=== PATIENT | male | born 1960 | race Caucasian/White ===

== ENCOUNTER 2018-12-11 14:49 | Emergency (ER) | payer OTHER ==
[~2018-12-11] VITALS: Ht 175.3 cm; Wt 97.7 kg
[~2018-12-11 14:49] MED LIST: CEFTIN500 MG PO; FLOMAX 0.40.4 MG/CAP PO; NO HOME MEDICATIONS; NORCO 325 MG-51 TAB PO; NORCO 325 MG-7.1 TAB PO; ROXICODONE 55 MG/TAB PO; ULTRAM 50MG TAB50 MG PO
[2018-12-11] MEDS ORDERED: HYGROTON 2525 MG/TAB (15:00)
[2018-12-11] MEDS ORDERED: FLEXERIL 1010 MG/TAB PO (15:01)
[2018-12-11 15:02] VITALS: BP 124/88
[2018-12-11] MEDS ORDERED: MOBIC 7.5MG7.5 MG PO (15:02)
[2018-12-11 15:53] LABS: COLLECTION METHOD CLEAN CATCH
[2018-12-11] MEDS ORDERED: MEDROL 4MG DOSPA4 MG PO (15:57)
[2018-12-11 16:38] LABS: PH 6 (5-8); SQUAMOUS EPITHELIAL None Seen /hpf; URINE APPEARANCE Clear; URINE BACTERIA None Seen /hpf; URINE BILIRUBIN Negative (NEGATIVE); URINE BLOOD Negative (NEGATIVE); URINE COLOR Amber; URINE GLUCOSE Negative (NEGATIVE); URINE KETONE Negative (NEGATIVE); URINE LEUKOCYTE ESTERASE Negative (NEGATIVE); URINE NITRATE Positive (NEGATIVE); URINE PROTEIN(semi-quant) Negative (NEGATIVE); URINE RBC 0-2 /hpf; URINE UROBILINOGEN Negative (NEGATIVE); URINE WBC 0-2 /hpf
[2018-12-11 16:56] VITALS: PULSE 67; TEMP 98.2
== END 2018-12-11 16:52 | disposition home or self-care (01) ==
LOC: COL.ER 14:49
PROVIDERS: Emergency Medicine
DX: M54.41 Lumbago with sciatica, right side (principal); I10 Essential (primary) hypertension; Z87.891 Personal history of nicotine dependence